=== PATIENT | female | born 1980 | race Caucasian/White ===

== ENCOUNTER 2021-01-09 07:23 | Emergency (ER) | payer SELFPAY ==
[2021-01-09] MEDS ORDERED: Ketorolac Tromethamine 30 MG/ML VIAL ONE (08:56)
== END 2021-01-09 09:17 | disposition home or self-care (01) ==
LOC: ERS 07:23
DX: M25.571 Pain in right ankle and joints of right foot (principal); Z79.899 Other long term (current) drug therapy
CPT/HCPCS: 96372; J1885

== ENCOUNTER 2021-01-15 18:36 | Emergency (ER) | payer SELFPAY ==
[2021-01-15] MEDS ORDERED: Ketorolac Tromethamine 30 MG/ML VIAL ONE (20:51)
== END 2021-01-15 21:12 | disposition home or self-care (01) ==
LOC: ERS 18:36
DX: S93.401A Sprain of unspecified ligament of right ankle, initial encounter (principal); W19.XXXA Unspecified fall, initial encounter
CPT/HCPCS: 96372; J1885